=== PATIENT | female | born 2000 | race African-American/Black ===

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

== ENCOUNTER 2023-11-03 17:12 | Emergency (ER) | payer OTHER ==
[2023-11-03 17:33] VITALS: BP 114/76; PULSE 83; RESP 16; TEMP 98.9; BMI 29.7
[2023-11-03] MEDS ORDERED: ACETAMINOPHEN 325 MG TABLET (FP) ONE (19:56)
[2023-11-03] MEDS: ACETAMINOPHEN 325 MG TABLET (FP) PO ONE (20:12)
[2023-11-03 20:20] LABS: BASO % 0.4 % (0-2.0); EOS % 0.1 % (0-4.5); HEMATOCRIT 36.7 % (32.4-45.2); HEMOGLOBIN 12.2 GM/dL (10.7-15.3); LYMPH % 10.7 % (8-40); MCH 30.6 pg (25.7-33.7); MCHC 33.3 g/dl (32.0-36.0); MEAN CELL VOLUME 91.9 fl (80-96); MONO % 9.3 % (3.8-10.2); NEUT % 79.5 % (42.8-82.8); PLATELET COUNT 288 10^3/uL (134-434); RBC 3.99 M/mm3 (3.60-5.2); RDW 13.9 % (11.6-15.6)
[2023-11-03 20:22] LABS: EPI CELLS 10 /uL (0-25.1); HYALINE CASTS 2 /uL (0-3.1); URINE APPEARANCE CLEAR; URINE BACTERIA >9,000 /uL (0-1359); URINE BILIRUBIN NEGATIVE (NEGATIVE); URINE COLOR YELLOW; URINE GLUCOSE (UA) NEGATIVE (NEGATIVE); URINE KETONE TRACE (NEGATIVE); URINE LEUK ESTERASE TRACE (NEGATIVE); URINE NITRITE NEGATIVE (NEGATIVE); URINE PROTEIN NEGATIVE (NEGATIVE); URINE RBC 31 /uL (0-23.9); URINE WBC 143 /uL (0-25.8)
[2023-11-03 20:35] LABS: POTASSIUM 4.2 mmol/L (3.5-5.1)
[2023-11-03 20:37] LABS: ALBUMIN 3.5 g/dl (3.4-5.0); BLOOD UREA NITROGEN 4.6 mg/dL (7-18); CALCIUM 9.4 mg/dL (8.5-10.1)
[2023-11-03 20:40] LABS: CREATININE 0.9 mg/dL (0.55-1.3)
[2023-11-03 20:42] LABS: BILIRUBIN,TOTAL 0.6 mg/dL (0.2-1); TOT PROT 7.8 g/dl (6.4-8.2)
[2023-11-03] MEDS ORDERED: CEFTRIAXONE 1 GM/50 ML BAG ONE (21:05)
[2023-11-03] MEDS ORDERED: KETOROLAC TROMETHAMINE 30 MG/1 ML VIAL ONE (21:05)
[2023-11-03] MEDS: KETOROLAC TROMETHAMINE 30 MG/1 ML VIAL IVPUSH ONE (21:15)
[2023-11-03] MEDS: CEFTRIAXONE 1 GM in DEXTROSE 5%-WATER - 50 ML IVPB ONE (21:16)
[2023-11-03 21:33] LABS: HIV INTERPRETATION NEGATIVE (NEGATIVE)
== END 2023-11-03 21:55 | disposition home or self-care (01) ==
LOC: JERFT 17:12 → JER 17:12
PROC: 3E03329 Introduction of Other Anti-infective into Peripheral Vein, Percutaneous Approach (ICD-10-PCS; principal; 2023-11-03)
PROC: 3E0333Z Introduction of Anti-inflammatory into Peripheral Vein, Percutaneous Approach (ICD-10-PCS; 2023-11-03)
DX: M54.9 Dorsalgia, unspecified (principal); R50.9 Fever, unspecified; R51.9 Headache, unspecified; R42 Dizziness and giddiness; R30.0 Dysuria; R11.0 Nausea; R10.11 Right upper quadrant pain
CPT/HCPCS: 36415; 76705-TC; 80053; 81003; 83690; 84703; 85025; 86803; 87389; 99284-25